=== PATIENT | male | born 1955 | race Caucasian/White ===

== ENCOUNTER 2022-05-10 18:06 | Emergency (ER) | payer MEDICARE, OTHER ==
[~2022-05-10 18:06] MED LIST: AZITHROMYCIN250 MG PO; CLOBAZAM10 MG PO; DUONEB 2.5-0.5M1 AMP INH; ESCITALOPRAM OX10 MG PO; KEPPRA500 MG PO; LEVAQUIN750 MG PO; LEVETIRACETAM1000 MG PO; PREDNISONE 20MG20 MG PO; TOPAMAX100 MG PO; TOPIRAMATE100 MG PO; VIMPAT200 MG PO
[2022-05-10 19:07] LABS: BILIRUBIN NEGATIVE (NEGATIVE); BLOOD NEGATIVE Ery/uL (NEGATIVE); CLARITY CLEAR (CLEAR); COLOR YELLOW (YELLOW); GLUCOSE (U) NORMAL (NORMAL); LEUKOCYTES NEGATIVE Leu/uL (NEGATIVE); NITRITE NEGATIVE (NEGATIVE); PROTEIN NEGATIVE (NEGATIVE); SPECIFIC GRAVITY 1.025 (1.001-1.030); UROBILINOGEN 0.2 mg/dL (0.2-1.0)
[2022-05-10 19:09] LABS: BASOPHIL 0.7 % (0-2); EOSINOPHIL 3.5 % (0-7); HCT 46.1 % (42.0-52.0); HGB 15.5 g/dl (13.2-18.0); LYMPHOCYTE 5.9 % (15-48); MCH 32.2 pg (25.0-31.0); MCHC 33.6 g/dL (32.0-36.0); MCV 95.6 fL (78.0-100.0); MONOCYTE 6.9 % (0-12); MPV 9.5 fL (6.0-9.5); NEUTROPHIL 81.6 % (41-80); NRBC 0; PLT 162 K/uL (150-400); RBC 4.82 M/uL (4.70-6.00); RDW 12.6 % (11.5-14.0); WBC 8.1 K/uL (4.0-10.5)
[2022-05-10 19:14] LABS: BUN/CREAT RATIO (CALC) 12.9 RATIO; CREATININE 1.16 mg/dL (0.67-1.17); POTASSIUM 3.8 mmol/L (3.5-5.1)
[2022-05-10 19:40] LABS: INFLUENZA A NAA NEGATIVE (NEGATIVE)
[2022-05-10 19:42] LABS: CORONAVIRUS 2019 SARS-COV-2 POSITIVE (NEGATIVE)
[2022-05-10 20:03] LABS: LACTIC ACID 1.8 mmol/L (0.4-1.9)
[2022-05-10] MEDS ORDERED: MEDROL 4MG DOSEP4 MG PO (22:19)
[2022-05-10] MEDS ORDERED: PAXLOVID 150-11 EACH PO (22:19)
[2022-05-10] MEDS ORDERED: AZITHROMYCIN250 MG PO (22:19)
== END 2022-05-10 23:09 | disposition home or self-care (01) ==
LOC: FER 18:06
PROVIDERS: Internal Medicine
DX: U07.1 COVID-19 (principal); K59.00 Constipation, unspecified
CPT/HCPCS: 36415; 71275; 80048; 81003; 83605; 85025; 85379; 87040; J1100; J2543; J7030; Q9967; U0002